=== PATIENT | male | born 1960 | race Caucasian/White ===

== ENCOUNTER 2020-07-22 21:41 | Emergency (ER) | payer SELFPAY ==
[~2020-07-22] VITALS: Ht 172.7 cm; Wt 133.8 kg
[~2020-07-22 21:41] MED LIST: COZ25 PO; HYD25 PO; LOVASTATIN20 MG PO; VERAPAMIL HYDR240 MG PO
[2020-07-22 21:54] VITALS: Ht 172.7 cm; Wt 133.8 kg
[2020-07-23 00:40] VITALS: BP 122/78
== END 2020-07-23 01:30 | disposition home or self-care (01) ==
LOC: ED 21:41
DX: F10.129 Alcohol abuse with intoxication, unspecified (principal); I10 Essential (primary) hypertension; E78.00 Pure hypercholesterolemia, unspecified; S01.112A Laceration without foreign body of left eyelid and periocular area, initial encounter; X58.XXXA Exposure to other specified factors, initial encounter; Y93.89 Activity, other specified; Y92.89 Other specified places as the place of occurrence of the external cause; Y99.8 Other external cause status; Y90.9 Presence of alcohol in blood, level not specified